=== PATIENT | female | born 1970 | race Caucasian/White ===

== ENCOUNTER → 2016-07-04 | Outpatient (CLI) | payer OTHER ==
--- NOTE | 2016-07-04 17:58 | MA ---
Screening Digital Mammogram With iCAD Analysis Clinical Indications: Routine screening. The patient has had a benign left breast biopsy. Technique: Standard cephalocaudal projections are obtained. Digital breast tomosynthesis was performe d in the MLO projection with reconstruction at 1.0 mm slice thickness and composite MLO views reconst ructed. This examination is processed by the iCAD computer aided detection system. Comparison: April 2014, September 2011, July 2011. Breast density: Type D: Extremely dense. Findings: CAD was reviewed. No masses, suspicious calcifications or secondary signs of malignancy are seen. There has been no significant change in the appearance of either breast. Impression: Negative mammogram. BI-RADS 1. Recommendation: Routine mammographic screening in one year as long as physical examination is negativ e in this patient with extremely dense breast parenchyma. [facility] will send a result letter to the patient. Negative mammography should not preclude additional workup of a clinically suspicious finding. The patient's information is entered into a reminder system with a target due date for her next mammo gram.
== END ==
LOC: FIMAGING 16:12
DX: Z12.31 Encounter for screening mammogram for malignant neoplasm of breast (principal)
CPT/HCPCS: G0202

== ENCOUNTER 2017-01-19 15:05 | Emergency (ER) | payer OTHER ==
[2017-01-19] MEDS ORDERED: NS 1,000 ML IV ONE (17:41)
[2017-01-19] MEDS ORDERED: MECLIZINE HCL 25 MG TAB PO ONE (17:47)
--- NOTE | 2017-01-19 17:47 | EDPHY ---
H & P Stated Complaint: 1week dizzyness/room spinning/feeling pressure in ears/nausea legs tingly Time Seen by Provider: 01/19/17 17:25 HPI/ROS: CHIEF COMPLAINT: Vertigo and extremity tingling HISTORY OF PRESENT ILLNESS: Patient is a 46-year-old female who comes to the emergency department complaining intermittent vertigo over the last couple months. She was initially seen by her primary who felt that she was hypothyroid. The patient was on Synthroid with no improvement so discontinued. She denies any trauma. She denies any fevers. She states that her symptoms are worsened with certain head positions. She over the last few days has also developed paresthesias in both arms and legs. She states that it feels like her legs are disconnected from her body. She had to pulley man the car because she felt that it was unsafe to drive. She denies headache, nausea vomiting. REVIEW OF SYSTEMS: Constitutional: denies: chills, fever, recent illness, recent injury EENTM: denies: blurred vision, double vision, nose congestion Respiratory: denies: cough, shortness of breath Cardiac: denies: chest pain, irregular heart rate, lightheadedness, palpitations Gastrointestinal/Abdominal: denies: abdominal pain, diarrhea, nausea, vomiting, blood streaked stools Genitourinary: denies: dysuria, frequency, hematuria, pain Musculoskeletal: denies: joint pain, muscle pain Skin: denies: lesions, rash, jaundice, bruising Neurological: See HPI Hematologic/Lymphatic: denies: blood clots, easy bleeding, easy bruising Immunologic/allergic: denies: HIV/AIDS, transplant EXAM: GENERAL: Well-appearing, well-nourished and in no acute distress. HEAD: Atraumatic, normocephalic. EYES: nystagmus to left. Pupils equal round and reactive to light, extraocular movements intact, sclera anicteric, conjunctiva are normal. ENT: TMs normal, nares patent, oropharynx clear without exudates. Moist mucous membranes. NECK: Normal range of motion, supple without lymphadenopathy or JVD. LUNGS: Breath sounds clear to auscultation bilaterally and equal. No wheezes rales or rhonchi. HEART: Regular rate and rhythm without murmurs, rubs or gallops. ABDOMEN: Soft, nontender, normoactive bowel sounds. No guarding, no rebound. No masses appreciated. BACK: No CVA tenderness, no spinal tenderness, step-offs or deformities EXTREMITIES: Normal range of motion, no pitting or edema. No clubbing or cyanosis. NEUROLOGICAL: Cranial nerves II through XII grossly intact. Normal speech, normal gait. 5/5 strength, normal movement in all extremities, normal sensation PSYCH: Normal mood, normal affect. SKIN: Warm, dry, normal turgor, no visible rashes or lesions. Source: Patient Exam Limitations: No limitations - Personal History LMP (Females 10-55): 15-21 Days Ago Current Tetanus/Diphtheria Vaccine: Yes - Medical/Surgical History Hx Asthma: No Hx Chronic Respiratory Disease: No Hx Diabetes: No Hx Cardiac Disease: No Hx Renal Disease: No Hx Cirrhosis: No Hx Alcoholism: No Hx HIV/AIDS: No Hx Splenectomy or Spleen Trauma: No Other PMH: deviated septum, hernia repair - Family History Significant Family History: No pertinent family hx - Social History Smoking Status: Never smoked Alcohol Use: Sober Drug Use: None Constitutional: Initial Vital Signs Temperature (C) 37 C 01/19/17 15:14 Heart Rate 84 01/19/17 15:14 Respiratory Rate 16 01/19/17 15:14 Blood Pressure 116/76 01/19/17 15:14 O2 Sat (%) 98 01/19/17 15:14 O2 Delivery Mode Room Air Allergies/Adverse Reactions: latex [Latex] Allergy (Verified 01/19/17 15:13) Penicillins Allergy (Verified 01/19/17 15:13) Home Medications: Medication Instructions Recorded Meclizine HCl [Meclizine HCl 25 mg 25 mg PO BID PRN #14 tab 01/19/17 (RX,OTC)] Medical Decision Making - Diagnostics Imaging: Discussed imaging studies w/ security infrastructure engineer Radiologist ED Course/Re-evaluation: 8:45 p.m. we discussed the patient's imaging and lab results. Her dizziness has resolved. We discussed Moises maneuver and performing at home if needed. I will also have her follow up with ENT. She is happy with this and declines further workup or testing at this time. We discussed indications for returning. Differential Diagnosis: Partial list of the Differential diagnosis considered include but were not limited to; BPV, MS and although unlikely based on the history and physical exam, I also considered dissection, ischemia, arrhythmia, tumor. I discussed these differential diagnoses and the plan with the patient as well as the usual and expected course. The patient understands that the diagnosis is provisional and that in medicine we are not always correct and that further workup is often warranted. Usual and customary warnings were given. All of the patient's questions were answered. The patient was instructed to return to the emergency department should the symptoms at all worsen or return, otherwise to followup with the physician as we discussed. - Data Points Laboratory Results: Laboratory Results 01/19/17 18:10 01/19/17 18:10 Medications Given: Discontinued Medications Sodium Chloride (Ns) 1,000 mls @ 0 mls/hr IV ONCE ONE; Wide Open PRN Reason: Protocol Stop: 01/19/17 17:42 Last Admin: 01/19/17 18:07 Dose: 1,000 mls Lorazepam (Ativan Injection) 1 mg IVP EDNOW ONE Stop: 01/19/17 19:00 Last Admin: 01/19/17 19:09 Dose: 1 mg Lorazepam (Ativan Injection) 1 mg IVP EDNOW ONE Stop: 01/19/17 19:32 Last Admin: 01/19/17 19:32 Dose: 1 mg Meclizine HCl (Meclizine Hcl) 50 mg PO EDNOW ONE Stop: 01/19/17 17:48 Last Admin: 01/19/17 18:06 Dose: 50 mg Departure - Departure Disposition: Home, Routine, Self-Care Clinical Impression: Vertigo Condition: Fair Instructions: Benign Paroxysmal Positional Vertigo (ED) Additional Instructions: Perform the Moises maneuver if her symptoms return at home as we discussed. Referrals: Vaughn Jade MD [Medical Doctor] - As per Instructions Maris Drosey MD [Medical Doctor] - As per Instructions Prescriptions: Meclizine HCl [Meclizine HCl 25 mg (RX,OTC)] 25 mg PO BID PRN #14 tab PRN Reason: Vertigo
[2017-01-19] MEDS ORDERED: GADOBUTROL 10 ML VIAL IVP ONE (17:56)
[2017-01-19 18:27] LABS: % IMMATURE GRANULYOCYTES 0.4 % (0.0-1.1); ABSOLUTE IMMATURE GRANULOCYTES 0.03 10^3/uL (0.00-0.10); ADD DIFF? NO; ADD MORPH? NO; ADD SCAN? NO; ATYPICAL LYMPHOCYTE FLAG 10 (0-99); FRAGMENT RBC FLAG 20 (0-99); HEMATOCRIT 41.6 % (38.0-47.0); HEMOGLOBIN 14.3 g/dL (12.6-16.3); LEFT SHIFT FLG 0 (0-99); LIPEMIA HEMOLYSIS FLAG 90 (0-99); MEAN CELL HEMOGLOBIN 30.1 pg (27.9-34.1); MEAN CELL HEMOGLOBIN CONCENTR. 34.4 g/dL (32.4-36.7); MEAN CELL VOLUME 87.6 fL (81.5-99.8); MEAN PLATELET VOLUME 10.7 fL (8.7-11.7); PLATELET CLUMPS FLAG 0 (0-99); PLATELET COUNT 243 10^3/uL (150-400); RED BLOOD CELL COUNT 4.75 10^6/uL (4.18-5.33)
[2017-01-19 18:34] LABS: ANION GAP 14 mEq/L (8-16); CALCIUM 9.4 mg/dL (8.5-10.4); CARBON DIOXIDE 22 mEq/l (22-31); CHLORIDE 105 mEq/L (97-110); CREATININE 0.8 mg/dL (0.6-1.0); GLOMERULAR FILTRATION RATE > 60; GLUCOSE 77 mg/dL (70-100); SODIUM 141 mEq/L (134-144)
[2017-01-19] MEDS ORDERED: LORazepam 2 MG/ML INJ IVP ONE ×2 (18:59→19:31)
[2017-01-19] MEDS ORDERED: LORazepam 2 MG/ML INJ ONE (19:26)
[2017-01-19 20:29] VITALS: PULSE 90
[2017-01-19 21:20] VITALS: BP 110/55; RESP 16; TEMP 98.8; O2SAT 99
== END 2017-01-19 21:20 | disposition home or self-care (01) ==
DX: R42 Dizziness and giddiness (principal); Z91.040 Latex allergy status
CPT/HCPCS: 96374; A9585; J2060

== ENCOUNTER 2018-03-17 13:01 | Emergency (ER) | payer OTHER ==
[2018-03-17 13:10] VITALS: BP 117/76
[2018-03-17] MEDS ORDERED: IBUPROFEN 600 MG TAB PO ONE (13:42)
--- NOTE | 2018-03-17 13:46 | EDPHY ---
H & P Stated Complaint: HIT HEAD ON CAR DOOR FRAME YESTERDAY/NO LOC TODAY DIZZY FEELING OFF/GARCIA Time Seen by Provider: 03/17/18 13:28 HPI/ROS: CHIEF COMPLAINT: Concussion HISTORY OF PRESENT ILLNESS: Patient is a 47-year-old female who comes to the emergency department complaining of mild headache, mild photophobia that gets worse with movement or exertion. The symptoms began yesterday after she hit her head on the frame of a car while trying to get in. She did not lose consciousness. She then went to a [facility] were she states she had a mild headache and felt slightly dizzy the entire time. She has not felt nauseous and vomited. She does not have a hematoma or laceration. No neck pain. No trouble ambulating. No focal weakness. Severity: Moderate Modifying factors: [place] slightly better with ibuprofen this morning REVIEW OF SYSTEMS: Constitutional: denies: chills, fever, recent illness, recent injury EENTM: denies: blurred vision, double vision, nose congestion Respiratory: denies: cough, shortness of breath Cardiac: denies: chest pain, irregular heart rate, lightheadedness, palpitations Gastrointestinal/Abdominal: denies: abdominal pain, diarrhea, nausea, vomiting, blood streaked stools Genitourinary: denies: dysuria, frequency, hematuria, pain Musculoskeletal: denies: joint pain, muscle pain Skin: denies: lesions, rash, jaundice, bruising Neurological: See HPI Hematologic/Lymphatic: denies: blood clots, easy bleeding, easy bruising Immunologic/allergic: denies: HIV/AIDS, transplant 10 systems reviewed and negative except as noted EXAM: GENERAL: Well-appearing, well-nourished and in no acute distress. HEAD: Atraumatic, normocephalic. EYES: Pupils equal round and reactive to light, extraocular movements intact, sclera anicteric, conjunctiva are normal. ENT: TMs normal, nares patent, oropharynx clear without exudates. Moist mucous membranes. NECK: Normal range of motion, supple without lymphadenopathy or JVD. LUNGS: Breath sounds clear to auscultation bilaterally and equal. No wheezes rales or rhonchi. HEART: Regular rate and rhythm without murmurs, rubs or gallops. ABDOMEN: Soft, nontender, normoactive bowel sounds. No guarding, no rebound. No masses appreciated. BACK: No CVA tenderness, no spinal tenderness, step-offs or deformities EXTREMITIES: Normal range of motion, no pitting or edema. No clubbing or cyanosis. NEUROLOGICAL: Cranial nerves II through XII grossly intact. Normal speech, normal gait. 5/5 strength, normal movement in all extremities, normal sensation , normal reflexes PSYCH: Normal mood, normal affect. SKIN: Warm, dry, normal turgor, no visible rashes or lesions. Source: Patient Exam Limitations: No limitations - Personal History LMP (Females 10-55): 1-7 Days Ago Current Tetanus Diphtheria and Acellular Pertussis (TDAP): Yes - Medical/Surgical History Hx Asthma: No Hx Chronic Respiratory Disease: No Hx Diabetes: No Hx Cardiac Disease: No Hx Renal Disease: No Hx Cirrhosis: No Hx Alcoholism: No Hx HIV/AIDS: No Hx Splenectomy or Spleen Trauma: No Other PMH: deviated septum, hernia repair - Family History Significant Family History: No pertinent family hx - Social History Smoking Status: Never smoked Alcohol Use: Sober Drug Use: None Constitutional: Initial Vital Signs Temperature (C) 37.2 C 03/17/18 13:05 Heart Rate 74 03/17/18 13:05 Respiratory Rate 18 03/17/18 13:05 Blood Pressure 117/76 03/17/18 13:05 O2 Sat (%) 98 03/17/18 13:05 O2 Delivery Mode Room Air Allergies/Adverse Reactions: latex [Latex] Allergy (Verified 03/17/18 13:04) Penicillins Allergy (Verified 03/17/18 13:04) Home Medications: Medication Instructions Recorded NK [No Known Home Meds] 03/17/18 Medical Decision Making ED Course/Re-evaluation: Patient has a normal neurologic examination and no sign of head trauma. We discussed the fact that this is likely a concussion and she is having post concussive symptoms. We did discuss risk of hemorrhage or fracture and possibility of CT scanning. Through shared decision making we agreed at this point to defer CT scan. If her symptoms worsen she will return. I encouraged rest and stepwise return to activity. She understands and agrees with this plan. Differential Diagnosis: Partial list of the Differential diagnosis considered include but were not limited to; concussion, post concussive syndrome, and although unlikely based on the history and physical exam, I also considered fracture, intracranial hemorrhage, neck injury, infection. I discussed these differential diagnoses and the plan with the patient as well as the usual and expected course. The patient understands that the diagnosis is provisional and that in medicine we are not always correct and that further workup is often warranted. Usual and customary warnings were given. All of the patient's questions were answered. The patient was instructed to return to the emergency department should the symptoms at all worsen or return, otherwise to followup with the physician as we discussed. - Data Points Medications Given: Discontinued Medications Ibuprofen (Motrin) 600 mg PO EDNOW ONE Stop: 03/17/18 13:43 Last Admin: 03/17/18 13:45 Dose: 600 mg Departure - Departure Disposition: Home, Routine, Self-Care Clinical Impression: Post concussive syndrome Condition: Fair Instructions: Concussion (ED), Post Concussion Syndrome (ED) Referrals: Marga Grider MD [Primary Care Provider] - 2-3 days, if not improved Stand Alone Forms: Work Excuse
== END 2018-03-17 13:54 | disposition home or self-care (01) ==
DX: F07.81 Postconcussional syndrome (principal); V48.4XXA Person boarding or alighting a car injured in noncollision transport accident, initial encounter; Y99.8 Other external cause status